=== PATIENT | male | born 1970 | race Caucasian/White ===

== ENCOUNTER 2017-09-07 08:38 | Day surgery (SDC) | payer OTHER ==
[~2017-09-07] VITALS: Ht 180.3 cm; Wt 70.3 kg
[2017-09-07] MEDS ORDERED: NS 1,000 ML IV ONE (09:00)
[2017-09-07] MEDS ORDERED: PROPOFOL 200 MG/20 ML VIAL As Ordered ONE ×2 (09:47→09:59)
[2017-09-07] MEDS ORDERED: LIDOCAINE 2% INJ 100 MG/5 ML SDV (FOR ANES.) As Ordered ONE (09:47)
--- NOTE | 2017-09-07 10:12 | ROOR ---
Patient Name: Tboy Denson Procedure Date: 09/07/2017 9:48 AM Date of : 1970 Age: 47 Room: [facility] Gender: Male Note Status: Finalized Procedure: Total Colonoscopy to Cecum Indications: Abnormal CT of the GI tract Providers: Dillon Bach MD Referring MD: JB FIGUEROA MD Requesting Provider: Medicines: Monitored Anesthesia Care Complications: No immediate complications. Procedure: Pre-Anesthesia Assessment: - The heart rate, respiratory rate, oxygen saturations, blood pressure, adequacy of pulmonary ventilation, and response to care were monitored throughout the procedure. The Colonoscope was introduced through the anus and advanced to the cecum, identified by appendiceal orifice and ileocecal valve. The colonoscopy was performed without difficulty. The patient tolerated the procedure well. The quality of the bowel preparation was good. Findings: The perianal and digital rectal examinations were normal. Non-bleeding internal hemorrhoids were found during retroflexion. The hemorrhoids were small and Grade I (internal hemorrhoids that do not prolapse). No other significant abnormalities were identified in a careful examination of the remainder of the colon. The exam was otherwise without abnormality on direct and retroflexion views. Impression: - Non-bleeding internal hemorrhoids. - The examination was otherwise normal on direct and retroflexion views. - No specimens collected. - The exam was otherwise normal to the cecum. Recommendation: - Patient has a contact number available for emergencies. The signs and symptoms of potential delayed complications were discussed with the patient. Return to normal activities tomorrow. Written discharge instructions were provided to the patient. - High fiber diet. - Discharge patient to home. - Continue present medications. - Repeat colonoscopy in 10 years for screening purposes. - Return to referring physician. - The findings and recommendations were discussed with the patient's family. Dillon Bach MD Dillon Bach MD 09/07/2017 10:12:21 AM This report has been signed electronically. Number of Addenda: 0 Note Initiated On: 09/07/2017 9:48 AM Estimated Blood Loss: Estimated blood loss: none.
[2017-09-07 10:22] VITALS: BP 105/76
== END 2017-09-07 10:55 | disposition home or self-care (01) ==
LOC: M OPP 08:38
PROVIDERS: ATTEND Internal Medicine Gastroenterology
DX: R93.3 Abnormal findings on diagnostic imaging of other parts of digestive tract (principal); K64.0 First degree hemorrhoids; K58.9 Irritable bowel syndrome, unspecified; R12 Heartburn; K21.9 Gastro-esophageal reflux disease without esophagitis; M51.9 Unspecified thoracic, thoracolumbar and lumbosacral intervertebral disc disorder; Z87.828 Personal history of other (healed) physical injury and trauma; F17.210 Nicotine dependence, cigarettes, uncomplicated; Z88.8 Allergy status to other drugs, medicaments and biological substances

== ENCOUNTER → 2018-06-22 | Outpatient (CLI) | payer OTHER | LOC: M RAD 10:55 | DX: M79.671 Pain in right foot (principal) | CPT/HCPCS: 73630 ==

== ENCOUNTER → 2018-08-09 | Outpatient (REF) | payer OTHER ==
[2018-08-09 13:22] LABS: TOTAL 25(OH) VITAMIN D 33.4 NG/ML (30.0-100.0)
[2018-08-09 13:49] LABS: ESTIMATED AVERAGE GLUCOSE 100 MG/DL (60-110); HEMOGLOBIN A1c 5.1 %
== END ==
LOC: M LAB REF 11:59
DX: Z13.9 Encounter for screening, unspecified (principal)
CPT/HCPCS: 84443

== ENCOUNTER 2019-02-18 18:43 | Emergency (ER) | payer OTHER ==
[2019-02-18] MEDS ORDERED: MORPHINE 10 MG/ML 1ML VIAL (J2270) IM ONE (19:15)
[2019-02-18 20:44] LABS: BASO # 0.1 10^3/uL (0.0-0.2); BASO % 0.5 % (0.0-1.0); EOS # 0.1 10^3/uL (0.0-0.50); EOS % 0.9 % (0.0-3.0); HEMATOCRIT 43.5 % (42.0-52.0); HEMOGLOBIN 14.7 g/dl (13.5-17.5); LYMPH # 1.3 10^3/uL (1.5-4.5); LYMPH % 12.4 % (24.0-44.0); MEAN CORPUSCULAR HEMOGLOBIN 30.5 pg (27.0-33.0); MEAN CORPUSCULAR HGB CONC 33.8 g/dl (32.0-36.5); MEAN CORPUSCULAR VOLUME 90.2 fl (80.0-96.0); MONO # 0.8 10^3/uL (0.0-0.8); MONO % 7.3 % (0.0-5.0); NEUTROPHILS # 8.4 10^3/uL (1.8-7.7); NEUTROPHILS % 78.5 % (36.0-66.0); PLATELET COUNT, AUTOMATED 248 10^3/uL (150-450); RED BLOOD COUNT 4.82 10^6/uL (4.30-6.10); WHITE BLOOD COUNT 10.7 10^3/uL (4.0-10.0)
[2019-02-18] MEDS ORDERED: MORPHINE 4 MG/ML 1ML VIAL/SYRINGE (J2270) IV ONE ×2 (20:45→22:15)
[2019-02-18 20:55] LABS: INR 0.92; PROTHROMBIN TIME 12.4 SECONDS (12.1-14.4)
[2019-02-18 20:56] LABS: PARTIAL THROMBOPLASTIN TIME 27.2 SECONDS (25.4-37.6)
[2019-02-18 21:04] LABS: BLOOD UREA NITROGEN 17 MG/DL (7-18); CALCIUM LEVEL 8.3 MG/DL (8.5-10.1); CARBON DIOXIDE LEVEL 29 MEQ/L (21-32); CHLORIDE LEVEL 106 MEQ/L (98-107); CREATININE FOR GFR 0.84 MG/DL (0.70-1.30); GLOMERULAR FILTRATION RATE > 60.0 (>60); GLUCOSE, FASTING 88 MG/DL (70-100); POTASSIUM SERUM 3.9 MEQ/L (3.5-5.1); SODIUM LEVEL 139 MEQ/L (136-145)
[2019-02-18] MEDS ORDERED: D5W/LR 1,000 ML IV SCH (22:15)
[2019-02-18 22:55] VITALS: BP 138/87
--- NOTE | 2019-02-19 02:06 | REP ---
Clinical: Trauma. Post reduction. Technique: Comminuted intra-articular fracture involving the proximal tibial metaphysis is appreciated with overlying soft tissue swelling and effusion. Fracture fragments appear grossly reduced but anatomical alignment is incomplete. Impression: Comminuted intra-articular fracture involving the proximal tibia with overlying swelling and effusion. Electronically Signed by Anand León MD 02/19/2019 01:58 A
--- NOTE | 2019-02-19 02:14 | REP ---
Clinical: Trauma. Technique: AP, lateral, bilateral oblique views of the left knee. Findings: Comminuted intra-articular fracture dislocation involving the proximal tibia with overlying soft tissue swelling and effusion. Impression: Comminuted fracture involving the proximal tibia with effusion and swelling. Electronically Signed by Anand León MD 02/19/2019 02:06 A
--- NOTE | 2019-02-19 02:15 | REP ---
Clinical: Trauma. Technique: Single AP view of the pelvis. Findings: Osseous structures, joint spaces, and surrounding soft tissues appear relatively normal. No acute fracture or dislocation. Impression: No acute fracture or dislocation. Electronically Signed by Anand León MD 02/19/2019 02:06 A
--- NOTE | 2019-02-19 02:18 | REP ---
Clinical: Trauma. Technique: AP and lateral views of the left tibia / fibula. Findings: Comminuted intra-articular fracture involving the proximal tibial metaphysis noted with swelling and effusion at the knee. No other fracture or dislocation identified. No subcutaneous emphysema or foreign body appreciated. Impression: Comminuted intra-articular fracture involving the proximal tibial metaphysis. Electronically Signed by Anand León MD 02/19/2019 02:08 A
== END 2019-02-18 23:04 | disposition short-term general hospital (02) ==
LOC: EDBD 18:43 → M ED 18:43
DX: S82.142A Displaced bicondylar fracture of left tibia, initial encounter for closed fracture (principal); S83.112A Anterior subluxation of proximal end of tibia, left knee, initial encounter; V18.4XXA Pedal cycle driver injured in noncollision transport accident in traffic accident, initial encounter; Y92.410 Unspecified street and highway as the place of occurrence of the external cause; Z87.891 Personal history of nicotine dependence
CPT/HCPCS: 72170; 73560; 73564; 73590; 80048; 85025; 85610; 85730; 96372; 96374; 96376; 99284; J2270

== ENCOUNTER → 2022-07-07 | Outpatient (CLI) | payer MEDICARE, OTHER | LOC: M LABSMTC 09:13 | PROVIDERS: ATTEND Anesthesiology | DX: Z01.818 Encounter for other preprocedural examination (principal); Z11.52 Encounter for screening for COVID-19 ==

== ENCOUNTER → 2022-08-15 | Outpatient (CLI) | payer MEDICARE | LOC: M LABSMTC 09:46 | PROVIDERS: ATTEND Anesthesiology | DX: Z01.812 Encounter for preprocedural laboratory examination (principal); Z20.822 Contact with and (suspected) exposure to COVID-19 ==

== ENCOUNTER 2022-08-20 06:49 | Day surgery (SDC) | payer MEDICARE, OTHER ==
[~2022-08-20] VITALS: Ht 180.3 cm; Wt 73.0 kg
[~2022-08-20 06:49] MED LIST: NS 1,000 ML IV ONE
[2022-08-20] MEDS ORDERED: LIDOCAINE 2% 100MG/5ML SDV (FOR ANES.) As Ordered ONE (08:38)
[2022-08-20] MEDS ORDERED: propofoL 200 MG/20 ML VIAL As Ordered ONE ×2 (08:38→08:39)
[2022-08-20 09:15] VITALS: BP 136/91
== END 2022-08-20 12:03 | disposition home or self-care (01) ==
LOC: M OPP 06:49
PROVIDERS: ATTEND Internal Medicine Gastroenterology
DX: K64.0 First degree hemorrhoids (principal); K64.4 Residual hemorrhoidal skin tags; K57.20 Diverticulitis of large intestine with perforation and abscess without bleeding; K63.89 Other specified diseases of intestine; Z88.5 Allergy status to narcotic agent; Z88.8 Allergy status to other drugs, medicaments and biological substances; Z87.891 Personal history of nicotine dependence; Z87.820 Personal history of traumatic brain injury

== ENCOUNTER 2023-03-11 18:23 | Inpatient (IN) | payer MEDICARE ==
[~2023-03-11] VITALS: Ht 180.3 cm; Wt 78.3 kg
[2023-03-11] MEDS ORDERED: HOME MED LIST COMPLETE! XX SCH (19:45)
[2023-03-11 21:08] LABS: HEMATOCRIT 46.7 % (42.0-52.0); HEMOGLOBIN 15.9 g/dl (13.5-17.5); MEAN CORPUSCULAR HEMOGLOBIN 30.7 pg (27.0-33.0); MEAN CORPUSCULAR VOLUME 90.2 fl (80.0-96.0); PLATELET COUNT, AUTOMATED 288 10^3/uL (150-450); RED BLOOD COUNT 5.18 10^6/uL (4.30-6.10); WHITE BLOOD COUNT 9.3 10^3/uL (4.0-10.0)
[2023-03-11 21:25] LABS: AMPHETAMINES LEVEL URINE NEGATIVE (NEGATIVE)
[2023-03-11 21:26] LABS: BARBITURATES URINE NEGATIVE (NEGATIVE); BENZODIAZEPINES URINE NEGATIVE (NEGATIVE); COCAINE METABOLITE URINE NEGATIVE (NEGATIVE); METHADONE URINE NEGATIVE (NEGATIVE); OPIATES URINE NEGATIVE (NEGATIVE); PHENCYCLIDINE URINE NEGATIVE (NEGATIVE)
[2023-03-11 21:34] LABS: CANNABINOIDS URINE POSITIVE (NEGATIVE)
[2023-03-11 21:40] LABS: ETHYL ALCOHOL (ETHANOL) < 0.003 % (0.000-0.010)
[2023-03-11 21:42] LABS: ACETAMINOPHEN LEVEL < 2.0 UG/ML (10.0-20.0); ALBUMIN 3.8 G/DL (3.2-5.2); ALKALINE PHOSPHATASE 54 U/L (46-116); ALT/SGPT 27 U/L (7.0-40); AST/SGOT 28 U/L (<34); BILIRUBIN,DIRECT 0.1 MG/DL (<0.4); BILIRUBIN,TOTAL 0.4 MG/DL (0.3-1.2); BLOOD UREA NITROGEN 21 MG/DL (9-23); CALCIUM LEVEL 8.9 MG/DL (8.5-10.1); CARBON DIOXIDE LEVEL 28 MMOL/L (20-31); CHLORIDE LEVEL 106 MMOL/L (98-107); CREATININE FOR GFR 0.91 MG/DL (0.70-1.30); GLOMERULAR FILTRATION RATE > 60.0 (>56); GLUCOSE, FASTING 76 MG/DL (60-100); SALICYLATE LEVEL < 3.0 MG/DL (<30); SODIUM LEVEL 140 MMOL/L (136-145); TOTAL PROTEIN 6.8 G/DL (5.7-8.2)
[2023-03-11 21:45] LABS: THYROID STIMULATING HORMONE 2.925 uIU/ML (0.55-4.78)
[2023-03-12] MEDS ORDERED: chlorproMAZINE INJ 50MG/2ML AMP IM STA (00:50)
[2023-03-12] MEDS ORDERED: ACETAMINOPHEN TAB 650MG DOSE (2X325MG) PO PRN (01:15)
[2023-03-12] MEDS ORDERED: traZODone 50 MG TAB PO PRN (01:15)
[2023-03-12 04:13] VITALS: BP 135/91
[2023-03-12 06:36] VITALS: BP 129/72
[2023-03-12 18:00] VITALS: BP 121/79
[2023-03-13 06:06] VITALS: BP 137/78
[2023-03-13 18:00] VITALS: BP 143/90
[2023-03-13] MEDS: OLANZapine 2.5MG TABLET PO SCH (20:41)
[2023-03-14 06:44] VITALS: BP 134/88
[2023-03-14 16:33] VITALS: BP 131/80
[2023-03-14] MEDS: OLANZapine 2.5MG TABLET PO SCH ×2 (20:50→21:03)
[2023-03-14] MEDS: MAALOX 30 ML SUSP *UDC PO PRN (21:03)
[2023-03-15] MEDS: MOM 30ML SUSPENSION UDC PO PRN (10:36)
[2023-03-15 16:57] VITALS: BP 137/82
[2023-03-15] MEDS: OLANZapine 2.5MG TABLET PO SCH (20:31)
[2023-03-16 06:50] VITALS: BP 136/94
[2023-03-16 16:42] VITALS: BP 127/79
[2023-03-16] MEDS: MAALOX 30 ML SUSP *UDC PO PRN (18:31)
[2023-03-16] MEDS: OLANZapine 2.5MG TABLET PO SCH (21:00)
[2023-03-16] MEDS: MOM 30ML SUSPENSION UDC PO PRN (22:00)
[2023-03-17 06:23] VITALS: BP 127/86
[2023-03-17 18:40] VITALS: BP 125/88
[2023-03-17] MEDS: MAALOX 30 ML SUSP *UDC PO PRN (20:16)
[2023-03-17] MEDS: OLANZapine 2.5MG TABLET PO SCH ×2 (20:17→23:15)
[2023-03-17] MEDS: MOM 30ML SUSPENSION UDC PO PRN (22:14)
[2023-03-18 06:45] VITALS: BP 130/77
[2023-03-18] MEDS ORDERED: OLAN2.5T25 PO (06:59)
[2023-03-18] MEDS ORDERED: TRAZ-252 PO (06:59)
== END 2023-03-18 09:45 | disposition home or self-care (01) | DRG 885 ==
LOC: M ED 18:23 → M ED INP 03-12 01:14 → M PSY 03-12 03:12
PROVIDERS: ADMIT Student in an Organized Health Care Education/Training Program; ATTEND Student in an Organized Health Care Education/Training Program
DX: F31.9 Bipolar disorder, unspecified (principal); R45.851 Suicidal ideations; F17.200 Nicotine dependence, unspecified, uncomplicated; K58.2 Mixed irritable bowel syndrome; Z59.00 Homelessness unspecified; Z56.0 Unemployment, unspecified; Z88.5 Allergy status to narcotic agent; Z88.8 Allergy status to other drugs, medicaments and biological substances; Z20.822 Contact with and (suspected) exposure to COVID-19; Z87.820 Personal history of traumatic brain injury

== ENCOUNTER 2024-10-23 13:26 | Emergency (ER) | payer MEDICAID, MEDICARE, OTHER, SELFPAY ==
[~2024-10-23] VITALS: Ht 180.3 cm; Wt 71.1 kg
[~2024-10-23 13:26] MED LIST changes: -NS 1,000 ML IV ONE; +OLAN2.5T53 PO; +TRAZ-252 PO
[2024-10-23 13:28] VITALS: BP 134/86; TEMP 97.3; O2SAT 96
== END 2024-10-23 15:49 | disposition left against medical advice (07) ==
LOC: M ED 13:26
DX: Z53.21 Procedure and treatment not carried out due to patient leaving prior to being seen by health care provider (principal)